=== PATIENT | male | born 1985 | race Caucasian/White ===

== ENCOUNTER 2021-12-04 18:56 | Emergency (ER) | payer BC, OTHER ==
[2021-12-04 19:15] VITALS: BP 127/82; BMI 32.5
[2021-12-04] MEDS ORDERED: IBUPROFEN 600 MG TABLET (FP) PO ONE ×2 (19:17→19:21)
[2021-12-04] MEDS ORDERED: SODIUM CHLORIDE 0.9% 500 ML INFUS.BAG IV ONE (19:23)
[2021-12-04 20:06] LABS: ALBUMIN 3.9 g/dl (3.4-5.0); BILIRUBIN,TOTAL 0.7 mg/dl (0.2-1); CALCIUM 8.9 mg/dl (8.5-10); CREATININE 1.1 mg/dl (0.55-1.3); TOT PROT 6.8 g/dl (6.4-8.2)
[2021-12-04 20:41] VITALS: PULSE 88; TEMP 99.8
[2021-12-04 21:43] LABS: BASO % 0.2 % (0-2.0); EOS % 0.3 % (0-4.5); HEMATOCRIT 45.2 % (35.4-49); HEMOGLOBIN 15.8 GM/dL (11.7-16.9); LYMPH % 7.9 % (8-40); MCHC 34.9 g/dl (32.0-35.9); MEAN CELL VOLUME 88.8 fl (80-96); MONO % 8.6 % (3.8-10.2); PLATELET COUNT 178 10^3/uL (134-434); RBC 5.09 M/mm3 (4.00-5.60); RDW 12.5 % (11.9-15.9); WHITE BLOOD COUNT 5.3 K/mm3 (4.0-10.0)
== END 2021-12-04 21:58 | disposition home or self-care (01) ==
LOC: FER 18:56
DX: B34.9 Viral infection, unspecified (principal)
CPT/HCPCS: 36415; 71046-TC-FY; 80053; 85025; 87040; 87651; 87804; 99284-25; C9803; U0003; U0005